=== PATIENT | male | born 1985 | race American Indian/Alaskan Native ===

== ENCOUNTER 2017-03-23 19:05 | Emergency (ER) | payer OTHER ==
[2017-03-23 19:47] VITALS: BP 123/74
--- NOTE | 2017-03-23 21:21 | XRay Report ---
FINAL REPORT PROCEDURE: XR KNEE 3V LT TECHNIQUE: Left knee radiographs, AP, lateral and oblique views. CPT 71227 HISTORY: injury with pain and swelling, decreased ROM COMPARISON: No prior studies are available for comparison. FINDINGS: There is a small to moderate-sized joint effusion present. There is irregularity of the tibial spines. This could be a normal variant. I cannot exclude a nondisplaced fracture of 1 of the tibial spines. This is best visualized on the AP and the oblique view. Joint spaces otherwise are well preserved. Bone density appears normal. IMPRESSION: Mild irregularity tibial spines as described. I cannot exclude a nondisplaced fracture. Consider follow-up CT scan of the knee for further evaluation. Small to moderate-sized joint effusion is present..
[2017-03-23] MEDS ORDERED: PERCOCET 5/325 ONE (23:49)
[2017-03-23] MEDS ORDERED: MOTRIN ONE (23:49)
[2017-03-23] MEDS ORDERED: PERCOCET 5/325 PO ONE (23:52)
[2017-03-24] MEDS ORDERED: MOTRIN PO ONE (01:35)
--- NOTE | 2017-03-24 01:41 | Emergency Department Report ---
ED Lower Extremity HPI - General Chief Complaint: Extremity Injury, Lower Stated Complaint: LEFT KNEE INJURY Time Seen by Provider: 03/24/17 00:27 Source: patient Mode of arrival: Ambulatory Limitations: No Limitations - History of Present Illness Initial Comments: This is a 31-year-old male nontoxic, well nourished in appearance, no acute signs of distress presents to the ED with c/o of left knee pain. Patient stated he was running after a bus today and felt a pop sensation. Patient describes pain as aching as level of 8 out of 10. Patient denies any direct trauma. Patient denies any falls or head trauma. Patient stated has knee swelling. Denies any numbness, tingling, fever, chills, nausea, vomiting, chest pain, shortness of breath, calf pain, calf tenderness, joint redness, headache or stiff neck. Patient denies any drug allergies or past medical history. MD Complaint: knee injury -: This afternoon Injury: Knee: Left Place: street/outdoors Severity: mild Severity scale (0 -10): 8 Improves With: nothing Worsens With: movement Context: running Associated Symptoms: swelling, able to partially bear weight, ambulatory. denies: snap/pop sensation, numbness, tingling, unable to bear weight - Related Data Previous Rx's Medication Instructions Recorded Last Taken Type Ibuprofen [Motrin] 600 mg PO Q8H PRN #30 tablet 03/24/17 Unknown Rx Allergies Allergy/AdvReac Type Severity Reaction Status Date / Time No Known Allergies Allergy Unverified 03/23/17 19:47 ED Review of Systems ROS: Stated complaint: LEFT KNEE INJURY Other details as noted in HPI Constitutional: denies: chills, fever Eyes: denies: eye pain, eye discharge, vision change ENT: denies: ear pain, throat pain Respiratory: denies: cough, shortness of breath, wheezing Cardiovascular: denies: chest pain, palpitations Endocrine: no symptoms reported Gastrointestinal: denies: abdominal pain, nausea, diarrhea Genitourinary: denies: urgency, dysuria Musculoskeletal: denies: back pain, joint swelling, arthralgia Skin: denies: rash, lesions Neurological: denies: headache, weakness, paresthesias Psychiatric: denies: anxiety, depression Hematological/Lymphatic: denies: easy bleeding, easy bruising ED Past Medical Hx - Past Medical History Previous Medical History?: No - Surgical History Past Surgical History?: No - Social History Smoking Status: Unknown if ever smoked Substance Use Type: None - Medications Home Medications: Home Medications Medication Instructions Recorded Confirmed Last Taken Type Ibuprofen [Motrin] 600 mg PO Q8H PRN #30 tablet 03/24/17 Unknown Rx ED Physical Exam - General Limitations: No Limitations General appearance: alert, in no apparent distress - Head Head exam: Present: atraumatic, normocephalic, normal inspection - Eye Eye exam: Present: normal appearance, PERRL, EOMI. Absent: scleral icterus, conjunctival injection, nystagmus, periorbital swelling, periorbital tenderness Pupils: Present: normal accommodation. Absent: unequal - ENT ENT exam: Present: normal exam, normal orophraynx, mucous membranes moist, TM's normal bilaterally, normal external ear exam - Neck Neck exam: Present: normal inspection, full ROM. Absent: tenderness, meningismus, lymphadenopathy, thyromegaly - Respiratory Respiratory exam: Present: normal lung sounds bilaterally. Absent: respiratory distress, wheezes, rales, rhonchi, stridor, chest wall tenderness, accessory muscle use, decreased breath sounds, prolonged expiratory - Cardiovascular Cardiovascular Exam: Present: regular rate, normal rhythm, normal heart sounds. Absent: irregular rhythm, systolic murmur, diastolic murmur, rubs, gallop - GI/Abdominal GI/Abdominal exam: Present: soft, normal bowel sounds. Absent: distended, tenderness, guarding, rebound, rigid, diminished bowel sounds - Rectal Rectal exam: Present: deferred - Extremities Exam Extremities exam: Present: normal inspection, full ROM, tenderness, normal capillary refill. Absent: pedal edema, joint swelling, calf tenderness - Expanded Lower Extremity Exam Left Hip exam: Present: normal inspection, full ROM Upper Leg exam: Present: normal inspection, full ROM Knee exam: Present: normal inspection, full ROM, tenderness, swelling, full knee extension. Absent: abrasion, laceration, ecchymosis, deformity, crepidus, dislocation, erythema, effusion, pain w/ pronation/supination, posterior draw sign, pain/laxity with valgus, pain/laxity with varus Lower Leg exam: Present: normal inspection, full ROM. Absent: tenderness, swelling, abrasion, laceration, ecchymosis, deformity, crepidus, dislocation, erythema, palpable cord, Oliver's sign Ankle exam: Present: normal inspection, full ROM. Absent: tenderness, swelling , abrasion, laceration, ecchymosis, deformity, crepidus, dislocation, erythema, anterior draw sign Foot/Toe exam: Present: normal inspection, full ROM. Absent: tenderness, swelling, abrasion, laceration, ecchymosis, deformity, crepidus, dislocation, erythema, amputation, puncture wound, foreign body, calcaneal tenderness, tenderness at base of 5th metatarsal, nail avulsion, subungual hematoma Neuro vascular tendon exam: Present: no vascular compromise. Absent: pulse deficit, abnormal cap refill, motor deficit, sensory deficit, tendon deficit, extremity cold to touch, pallor, abnormal 2-point discrimination, decreased fine /light touch, foot drop, peroneal nerve deficit, significant pain with passive ROM of distal joint Gait: Positive: observed and limited by pain - Back Exam Back exam: Present: normal inspection, full ROM. Absent: tenderness, CVA tenderness (R), CVA tenderness (L), muscle spasm, paraspinal tenderness, vertebral tenderness, rash noted - Neurological Exam Neurological exam: Present: alert, oriented X3, CN II-XII intact, normal gait, reflexes normal - Psychiatric Psychiatric exam: Present: normal affect, normal mood - Skin Skin exam: Present: warm, dry, intact, normal color. Absent: rash ED Course Vital Signs 03/23/17 03/23/17 19:40 23:52 Temperature 99.2 F Pulse Rate 112 H Respiratory 18 18 Rate Blood Pressure 123/74 O2 Sat by Pulse 100 Oximetry - Reevaluation(s) Reevaluation #1: 03/24/17 01:43 Patient is speaking in full sentences with no signs of distress noted. Reevaluation #2: 03/24/17 06:23 Post-splint assessment; neurovascular intact, normal capillary refill less than 2 seconds, patient is able to move toes normally. The patient denies splinting too tight. ED Lower Extremity MDM - Medical Decision Making This is a 31-year-old male that presents with left knee strain. Patient is stable and was examined by me. X-ray has been obtained and the radiologist was unable to rule out fracture and recommended a CT scan. CT scan of left knee has been obtained without contrast and also the dictated by radiologist with medial tibial plataeu fracture. Patient was notified of results were about the patient. patient received percocet prior to my interview. patient also did receive motrin for pain. patient was instructed to rice therapy. patient received a long leg Sanborn splint and crutches at discharge. Patient was instructed not to weight bear the leg. Post-splint assessment; neurovascular intact, normal capillary refill less than 2 seconds, patient is able to move toes normally. The patient denies splinting too tight. Patient was educated by RN how to use crutches. Patient was instructed Follow-up with a orthopedic doctor in 3-5 days or if symptoms worsen and continue return to emergency room as soon as possible. At time time of discharge, the patient does not seem toxic or ill in appearance. No acute signs of distress noted. Patient agrees to discharge treatment plan of care. No further questions noted by the patient. Critical care attestation.: If time is entered above; I have spent that time in minutes in the direct care of this critically ill patient, excluding procedure time. ED Disposition Clinical Impression: Tibial plateau fracture, left Qualifiers: Encounter type: initial encounter Fracture type: closed Qualified Code(s): S82.142A - Displaced bicondylar fracture of left tibia, initial encounter for closed fracture Disposition: DC-01 TO HOME OR SELFCARE Is pt being admited?: No Does the pt Need Aspirin: No Condition: Stable Instructions: Crutch Instructions (ED), Splint Care (ED), Leg Fracture (ED) Additional Instructions: Follow-up with a orthopedic doctor in 3-5 days or if symptoms worsen and continue return to emergency room as soon as possible. Rest, elevate, and ice extremity Prescriptions: Ibuprofen [Motrin] 600 mg PO Q8H PRN #30 tablet PRN Reason: Pain Referrals: GERMAN AGRAWAL MD [Primary Care Provider] - 3-5 Days MARVIN SEGAL MD [Staff Physician] - 3-5 Days [facility] [Outside] - 3-5 Days [facility] [Outside] - 3-5 Days Forms: Work/School Release Form(ED)
--- NOTE | 2017-03-24 05:03 | Cat Scan Report ---
FINAL REPORT PROCEDURE: CT LOWER EXTREMITY LT WO CON TECHNIQUE: Computerized axial tomography of the LEFT was performed without contrast. HISTORY: knee pain left COMPARISON: No prior studies are available for comparison. FINDINGS: There are fractures of the medial tibial plateau. There is a displaced cortical fragment measuring 1 centimeter. There is a focal pit like defect in the medial tibial plateau with a depth of 7 millimeters. The fibula, femur and patella are intact. There is no dislocation. There is a moderate joint effusion. Soft tissues are otherwise within normal limits. IMPRESSION: Fractures of the medial tibial plateau as described. There is a moderate joint effusion.
== END 2017-03-24 07:19 | disposition home or self-care (01) ==
LOC: EDSEX → ED 19:05
DX: S82.142A Displaced bicondylar fracture of left tibia, initial encounter for closed fracture (principal); X58.XXXA Exposure to other specified factors, initial encounter; Y93.02 Activity, running; Y92.488 Other paved roadways as the place of occurrence of the external cause; Y99.8 Other external cause status
CPT/HCPCS: 99284

== ENCOUNTER 2017-05-18 06:49 | Emergency (ER) | payer SELFPAY ==
[2017-05-18 07:33] LABS: Basophils # (Auto) 0.1 K/mm3 (0.0-0.1); Basophils % (Auto) 1.1 % (0.0-1.8); Eosinophils % (Auto) 0.8 % (0.0-4.3); Hematocrit 48.2 % (35.5-45.6); Hemoglobin 15.8 gm/dl (11.8-15.2); Lymphocytes % (Auto) 18.7 % (13.4-35.0); Mean Corpuscular HGB Conc 33 % (32-34); Mean Corpuscular Hemoglobin 29 pg (28-32); Mean Corpuscular Volume 88 fl (84-94); Monocytes # (Auto) 0.3 K/mm3 (0.0-0.8); Monocytes % (Auto) 6.1 % (0.0-7.3); Platelet Count 199 K/mm3 (140-440); Red Blood Count 5.46 M/mm3 (3.65-5.03); Red Cell Distribution Width 12.9 % (13.2-15.2)
[2017-05-18 07:45] LABS: Amorphous Crystals,Urine Few; Bilirubin,Urine NEG (Negative); Blood,Urine NEG (Negative); Color,Urine Yellow (Yellow); Mucus,Urine FEW /HPF
[2017-05-18 07:51] LABS: Alanine Aminotransferase 33 units/L (7-56); Albumin 4.2 g/dL (3.9-5); BUN/Creatinine Ratio 11; Blood Urea Nitrogen 12 mg/dL (9-20); Calcium 8.9 mg/dL (8.4-10.2); Hemolysis Index 14
--- NOTE | 2017-05-18 12:13 | Emergency Department Report ---
ED Abdominal Pain HPI - General Chief Complaint: Abdominal Pain Stated Complaint: CP; SOB; N/V Time Seen by Provider: 05/18/17 12:05 Source: patient Mode of arrival: Ambulatory Limitations: No Limitations - History of Present Illness Initial Comments: Patient is a 31-year-old [place] male who is complaining of epigastric pain since early this morning. Patient states that this burning sensation no radiation. Patient states it's a 8 out 10 in severity. Patient vomited twice and make the discomfort worse. Patient states that this happens periodically he 's never seen a structural engineering technician however he is tried Zantac baking soda mustard with no relief. Patient denies any like tarry stools or bloody emesis fevers chills chest pain at this time. - Related Data Previous Rx's Medication Instructions Recorded Last Taken Type Ibuprofen [Motrin] 600 mg PO Q8H PRN #30 tablet 03/24/17 Unknown Rx Omeprazole 20 mg PO DAILY #30 capsule. 05/18/17 Unknown Rx Ondansetron [Zofran Odt] 4 mg PO Q8HR #10 tab.rapdis 05/18/17 Unknown Rx traMADol [Ultram] 50 mg PO Q6HR PRN #12 tablet 05/18/17 Unknown Rx Allergies Allergy/AdvReac Type Severity Reaction Status Date / Time No Known Allergies Allergy Unverified 03/23/17 19:47 ED Review of Systems ROS: Stated complaint: CP; SOB; N/V Other details as noted in HPI Comment: All other systems reviewed and negative ED Past Medical Hx - Past Medical History Previous Medical History?: No - Surgical History Past Surgical History?: No - Social History Smoking Status: Current Every Day Smoker Substance Use Type: Marijuana - Medications Home Medications: Home Medications Medication Instructions Recorded Confirmed Last Taken Type Ibuprofen [Motrin] 600 mg PO Q8H PRN #30 tablet 03/24/17 Unknown Rx Omeprazole 20 mg PO DAILY #30 capsule. 05/18/17 Unknown Rx Ondansetron [Zofran Odt] 4 mg PO Q8HR #10 tab.rapdis 05/18/17 Unknown Rx traMADol [Ultram] 50 mg PO Q6HR PRN #12 tablet 05/18/17 Unknown Rx ED Physical Exam - General Limitations: No Limitations General appearance: alert, in no apparent distress - Head Head exam: Present: atraumatic, normocephalic - Eye Eye exam: Present: normal appearance - ENT ENT exam: Present: mucous membranes moist - Neck Neck exam: Present: normal inspection - Respiratory Respiratory exam: Present: normal lung sounds bilaterally. Absent: respiratory distress, wheezes, rales - Cardiovascular Cardiovascular Exam: Present: regular rate, normal rhythm. Absent: systolic murmur, diastolic murmur, rubs, gallop - GI/Abdominal GI/Abdominal exam: Present: soft, tenderness, normal bowel sounds. Absent: distended, guarding, rebound, rigid (epigastric) - Rectal Rectal exam: Present: deferred - Extremities Exam Extremities exam: Present: normal inspection - Back Exam Back exam: Present: normal inspection - Neurological Exam Neurological exam: Present: alert, oriented X3 - Psychiatric Psychiatric exam: Present: normal affect, normal mood - Skin Skin exam: Present: warm, dry, intact, normal color. Absent: rash ED Course Vital Signs 05/18/17 07:06 Temperature 97.7 F Pulse Rate 61 Respiratory 18 Rate Blood Pressure 132/81 O2 Sat by Pulse 99 Oximetry ED Medical Decision Making - Lab Data Result diagrams: 05/18/17 07:18 05/18/17 07:18 - Medical Decision Making Laboratory studies are within normal limits. Patient does have symptoms consistent with GERD that is progressing. Patient was given a GI cocktail here and some Zofran and we discharged with omeprazole Ultram and Zofran with GI follow-up Critical care attestation.: If time is entered above; I have spent that time in minutes in the direct care of this critically ill patient, excluding procedure time. ED Disposition Clinical Impression: GERD (gastroesophageal reflux disease) Disposition: DC-01 TO HOME OR SELFCARE Is pt being admited?: No Does the pt Need Aspirin: No Condition: Stable Instructions: Gastroesophageal Reflux Disease (ED), Diet for Ulcers and Gastritis (ED) Prescriptions: Omeprazole 20 mg PO DAILY #30 capsule. Ondansetron [Zofran Odt] 4 mg PO Q8HR #10 tab.nick traMADol [Ultram] 50 mg PO Q6HR PRN #12 tablet PRN Reason: Pain Referrals: THAI ROJAS, ASSOCIATE DATA SCIENTIST [Advanced Practice Nurse] - 3-5 Days
[2017-05-18] MEDS ORDERED: ZOFRAN ODT PO ONE (12:14)
[2017-05-18] MEDS ORDERED: LIDOCAINE VISCOUS 2% PO ONE (12:14)
[2017-05-18] MEDS ORDERED: ALUM-MAG HYDROX-SIMETH 200-200-20MG/5ML PO ONE (12:14)
[2017-05-18] MEDS ORDERED: ALUM-MAG HYDROX-SIMETH 200-200-20MG/5ML ONE (12:15)
[2017-05-18] MEDS ORDERED: ZOFRAN ODT ONE (12:16)
[2017-05-18] MEDS ORDERED: LIDOCAINE VISCOUS 2% ONE (12:16)
[2017-05-18 12:22] VITALS: BP 105/66
== END 2017-05-18 12:23 | disposition home or self-care (01) ==
LOC: ED 06:49
DX: K21.9 Gastro-esophageal reflux disease without esophagitis (principal); F17.200 Nicotine dependence, unspecified, uncomplicated; F12.10 Cannabis abuse, uncomplicated
CPT/HCPCS: 36415; 80053; 81001; 85025; 93005; 93010; 99283; Q0162

== ENCOUNTER 2020-04-15 18:38 | Emergency (ER) | payer SELFPAY ==
[2020-04-15 18:53] VITALS: BP 127/79
== END 2020-04-15 20:40 | disposition home or self-care (01) ==
LOC: ED 18:38
DX: M79.89 Other specified soft tissue disorders (principal)
CPT/HCPCS: 99282